=== PATIENT | male | born 1940 | race Caucasian/White ===

== ENCOUNTER 2016-06-25 13:29 | Day surgery (SDC) | payer MEDICARE, OTHER ==
--- NOTE | ~2016-06-25 | OP ---
Record Of Operation [facility] [address] [place]. [address] NAME: VERONIKA DUMONT : 38 STATUS : PRE [facility] PAT#: [id number] AGE: 76 ADM/REG DATE : MR#: [id number] REPORT SERV DATE: 06/26/16 DICTATED BY: LA[place] MCKEON DATE: 06/25/16 REPORT STATUS : Draft TRANSCRIBED BY: MODL DATE: 06/25/16 DATE OF PROCEDURE: 06/25/2016 PROCEDURE: L1 kyphoplasty with radiographic guidance (fluoroscopic guidance). SURGEON: Lake Mckeon M.D. DIAGNOSES: 1. Osteopenia. 2. Pathologic compression fracture of the L1 vertebrae. 3. Severe lumbalgia secondary to the above. PREPROCEDURAL ANTIBIOTICS: None. ANESTHESIA: General. INTERIM HISTORY: Noncontributory. COMPLICATIONS: None. There was a bed malfunction during the case and this is explained below. CONSENT: Informed consent was given and a signed informed consent document is obtained. A full description of the procedure was provided including benefits as well as possible complications. This was discussed with the patient and his . DESCRIPTION OF PROCEDURE: The patient was brought to the operating room and placed on exam table on chest rolls in a comfortable prone position. The operative field was prepped with Hibiclens, followed by ChloraPrep x2 and draped in sterile fashion including Ioban. Local anesthesia, both superficial and deep was provided by local infiltration with a total of 10 mL of a 50:50 mixture of 1% lidocaine and 0.5% Marcaine with epinephrine. Deep anesthesia was administered to the level of the pedicles using a 22-gauge, 3.5 inch spinal needle and this also allowed corroboration of the correct level at the L1 vertebrae between AP and lateral fluoroscopy. I just anesthetized the second pedicle and went to adjust my lateral image by rotating the patient on the bed. I asked for bed rotation, and unfortunately, there was a bed malfunction and the patient would only roll in one direction no matter which button was pressed. The patient unfortunately was strapped in extremely well with three straps and the patient's bed was rotated towards me greater than 45 degrees to the point where I had to help hold the patient to help him to keep from sliding on the floor. Other assistance arrived and we did not let the patient fall. The C-arms were pulled away and the bed was manually returned to a neutral position. We decided at this point in time to change the bed and so sterile drapes were removed. The old bed was taken out of the operating room and a new bed brought in. The patient was repositioned on the new bed using AP and lateral fluoroscopy and the L1 vertebrae was again identified. Again, sterile technique was used using two ChloraPrep sterile drapes and Ioban. I did reanastomosis the skin on the pedicles using a total of 5 more mL of anesthetic. Record Of Operation [facility] [address] [place]. [address] NAME: VERONIKA DUMONT : 38 STATUS : PRE SD PAT#: [id number] AGE: 76 ADM/REG DATE : MR#: [id number] REPORT SERV DATE: 06/26/16 DICTATED BY: LA[place] MCKEON DATE: 06/25/16 REPORT STATUS : Draft TRANSCRIBED BY: MYNOR DATE: 06/25/16 Two C-arms were used throughout the procedure in biplanar fashion and radiographs were made. We did not have any further difficulties with a new bed. Attention was focused on the L1 vertebrae, and using a #15 blade scalpel, a small skin rent was made in the skin just lateral to the right pedicle under the AP view. Size 2 (Express) trocar was then mounted through the right pedicle just past the posterior margin of the vertebral body using multiple radiographic views under AP and lateral projections. The Kyphon biopsy device was then cored under continuous live fluoroscopy until reaching the junction of the anterior one third and posterior two-thirds of the vertebral body under lateral projection. The biopsy device was near the midline on the AP view. The same procedure was then repeated on the left side. A hand drill was used to further augment the bone tunnel on each side. Inflatable bone tamps were then filled with contrast to a pressure of approximately 150 psi and radiographs revealed excellent intraosseous cavity formation on AP and lateral projections. The balloon tamps were then deflated and removed and a total of approximately 7.5 mL of polymethylmethacrylate (PMMA) was pushed through the introducers after being mixed and given time to harden. The patient tolerated this well and radiographs revealed excellent interdigitation on the AP view. There was excellent cement spread along the fracture line on the lateral fluoroscopy without any evidence of extravasation. All needles, introducers, and other percutaneous equipment were removed. The skin nicks were then cleansed and dressed. The patient tolerated the procedure well and there were no complications. He will be taken to the recovery area in good condition and will be provided with postprocedural instructions. I will see him tomorrow in the clinic for followup. IMPRESSION: 1. Successful kyphoplasty of the L1 vertebral level as described above. 2. Bed malfunction as described above without any known complications for the patient. 3. Radiographs were taken with details noted above. LSR/MODL Lake Mckeon M.D. / [id number] CC: Alek Nice DO
[~2016-06-25 13:29] MED LIST: ADVIL PO; AMB10 PO; ASAB PO; B12250T PO; CIALIS20 MG PO; COLCH6 PO; COREG6 PO; FISH-EPA1000 MG PO; HUMIRA SC; MAX25 PO; NAP500 PO; OTEZLA30 MG PO; QUALAQUIN PO; ULTRAM50 PO; VIAGRA100 MG PO; Z300 PO; ZOCOR20 PO; ZYRTEC ALLGY10 MG PO
[2016-06-25 15:56] LABS: INTERNATIONAL NORMAL RATI 1.1 UNITS (-); PARTIAL THROMBO TIME 34.5 SEC (22.5-37.2); PROTIME (NOT ORD) 13.7 SEC (12.0-14.5)
== END 2016-06-25 23:59 | disposition home or self-care (01) ==
LOC: SDC 13:29
PROVIDERS: Emergency Medicine Sports Medicine
PROC: 0QU03JZ Supplement Lumbar Vertebra with Synthetic Substitute, Percutaneous Approach (ICD-10-PCS; 2016-06-25)
PROC: 0QB03ZX Excision of Lumbar Vertebra, Percutaneous Approach, Diagnostic (ICD-10-PCS; 2016-06-25)
PROC: 0QS03ZZ Reposition Lumbar Vertebra, Percutaneous Approach (ICD-10-PCS; principal; 2016-06-25 16:15)
DX: M85.88 Other specified disorders of bone density and structure, other site (principal); M48.56XA Collapsed vertebra, not elsewhere classified, lumbar region, initial encounter for fracture; M54.5 Low back pain; I10 Essential (primary) hypertension; E78.5 Hyperlipidemia, unspecified; E78.00 Pure hypercholesterolemia, unspecified; M19.90 Unspecified osteoarthritis, unspecified site; M10.9 Gout, unspecified; L40.9 Psoriasis, unspecified; F17.290 Nicotine dependence, other tobacco product, uncomplicated; G47.33 Obstructive sleep apnea (adult) (pediatric); H91.93 Unspecified hearing loss, bilateral; Z85.828 Personal history of other malignant neoplasm of skin; Z98.42 Cataract extraction status, left eye; Z95.2 Presence of prosthetic heart valve; Z96.1 Presence of intraocular lens; Z98.41 Cataract extraction status, right eye; Z88.0 Allergy status to penicillin; Z98.84 Bariatric surgery status; Z90.49 Acquired absence of other specified parts of digestive tract; Z79.1 Long term (current) use of non-steroidal anti-inflammatories (NSAID); Z79.891 Long term (current) use of opiate analgesic; Z79.899 Other long term (current) drug therapy; Z98.890 Other specified postprocedural states
CPT/HCPCS: 76000; 85049; 85610; 85730; 88307; 88311; 93005; A9270-GY; C1726; J2370; J2405; J2710; J3010; J3370; Q9967